=== PATIENT | male | born 1940 | race Caucasian/White ===

== ENCOUNTER 2022-07-14 13:06 | Outpatient (CLI) | payer MEDICARE, SELFPAY ==
[2022-07-14 14:58] LABS: PSA Diagnostic* < 0.06 ng/mL (0.10-4.00)
== END 2022-07-14 13:07 | disposition home or self-care (01) ==
PROVIDERS: Visit Provider Physician Assistant
DX: R97.21 Rising PSA following treatment for malignant neoplasm of prostate (principal)
CPT/HCPCS: 36415; 84153